=== PATIENT | female | born 1970 | race Two or more races ===

== ENCOUNTER 2023-12-20 10:17 | Outpatient (CLI) | payer OTHER | END 2023-12-20 10:25 | disposition home or self-care (01) | LOC: SONOGRAMA 10:17 | PROVIDERS: ATTEND Pathology Anatomic Pathology & Clinical Pathology | DX: D34 Benign neoplasm of thyroid gland (principal); E07.89 Other specified disorders of thyroid; E04.2 Nontoxic multinodular goiter ==